=== PATIENT | male | born 1965 | race Caucasian/White ===

== ENCOUNTER → 2020-09-20 | Outpatient (CLI) | payer OTHER | LOC: M LABSMTC 09:38 | PROVIDERS: ATTEND Anesthesiology | DX: Z01.812 Encounter for preprocedural laboratory examination (principal); Z20.822 Contact with and (suspected) exposure to COVID-19 ==

== ENCOUNTER 2020-09-25 06:49 | Day surgery (SDC) | payer BC ==
[~2020-09-25] VITALS: Ht 172.7 cm; Wt 101.6 kg
[2020-09-25] MEDS ORDERED: NS 1,000 ML IV ONE (07:00)
[2020-09-25] MEDS ORDERED: LIDOCAINE 2% 100MG/5ML SDV (FOR ANES.) As Ordered ONE (07:05)
[2020-09-25] MEDS ORDERED: propofoL 200 MG/20 ML VIAL As Ordered ONE (07:05)
--- NOTE | 2020-09-25 08:12 | ROOR ---
Patient Name: Chris Hitchcock Procedure Date: 09/25/2020 7:27 AM Date of : 1965 Age: 55 Room: [facility] Gender: Male Note Status: Finalized Procedure: Colonoscopy Indications: Screening for colorectal malignant neoplasm Providers: Garth Mancera MD Referring MD: Court Almendarez MD Requesting Provider: Medicines: Monitored Anesthesia Care Complications: No immediate complications. Procedure: Pre-Anesthesia Assessment: - Prior to the procedure, a History and Physical was performed, and patient medications and allergies were reviewed. The patient is competent. The risks and benefits of the procedure and the sedation options and risks were discussed with the patient. All questions were answered and informed consent was obtained. Patient identification and proposed procedure were verified by the physician, the nurse and the anesthesiologist in the endoscopy suite. Mental Status Examination: alert and oriented. Airway Examination: normal oropharyngeal airway and neck mobility. Respiratory Examination: clear to auscultation. CV Examination: normal. Prophylactic Antibiotics: The patient does not require prophylactic antibiotics. Prior Anticoagulants: The patient has taken no previous anticoagulant or antiplatelet agents. ASA Grade Assessment: II - A patient with mild systemic disease. After reviewing the risks and benefits, the patient was deemed in satisfactory condition to undergo the procedure. The anesthesia plan was to use monitored anesthesia care (MAC). Immediately prior to administration of medications, the patient was re-assessed for adequacy to receive sedatives. The heart rate, respiratory rate, oxygen saturations, blood pressure, adequacy of pulmonary ventilation, and response to care were monitored throughout the procedure. The physical status of the patient was re-assessed after the procedure. The Colonoscope was introduced through the anus and advanced to the cecum, identified by appendiceal orifice and ileocecal valve. The colonoscopy was performed without difficulty. The patient tolerated the procedure well. The quality of the bowel preparation was good. Findings: Hemorrhoids were found on perianal exam. Four sessile polyps were found in the transverse colon, ascending colon and cecum. The polyps were 1 to 4 mm in size. These polyps were removed with a cold snare. Resection and retrieval were complete. Estimated blood loss was minimal. There was a small lipoma, 1 mm in diameter, in the ascending colon. The retroflexed view of the distal rectum and anal verge was normal and showed no anal or rectal abnormalities. Impression: - Hemorrhoids found on perianal exam. - Four 1 to 4 mm polyps in the transverse colon, in the ascending colon and in the cecum, removed with a cold snare. Resected and retrieved. - Small lipoma in the ascending colon. - The distal rectum and anal verge are normal on retroflexion view. Recommendation: - Discharge patient to home (ambulatory). - Telephone my office for pathology results in 1 week. - Repeat colonoscopy in 5 years for surveillance of multiple polyps. Procedure Code(s): --- Professional --- 89947, Colonoscopy, flexible; with removal of tumor(s), polyp(s), or other lesion(s) by snare technique Diagnosis Code(s): --- Professional --- Z12.11, Encounter for screening for malignant neoplasm of colon K64.9, Unspecified hemorrhoids K63.5, Polyp of colon D17.5, Benign lipomatous neoplasm of intra-abdominal organs CPT copyright 2019 [employer]. All rights reserved. The codes documented in this report are preliminary and upon braille coder review may be revised to meet current compliance requirements. Garth Mancera MD Garth Mancera MD 09/25/2020 8:12:14 AM Electronically signed by Garth Mancera MD Number of Addenda: 0 Note Initiated On: 09/25/2020 7:27 AM Estimated Blood Loss: Estimated blood loss was minimal.
[2020-09-25 08:32] VITALS: BP 104/62
== END 2020-09-25 08:35 | disposition home or self-care (01) ==
LOC: M OPP 06:49
PROVIDERS: ATTEND Surgery
DX: Z12.11 Encounter for screening for malignant neoplasm of colon (principal); K63.5 Polyp of colon; D17.5 Benign lipomatous neoplasm of intra-abdominal organs; K64.8 Other hemorrhoids; Z87.891 Personal history of nicotine dependence

== ENCOUNTER → 2020-10-17 | Outpatient (CLI) | payer BC ==
--- NOTE | 2020-10-17 16:35 | REP ---
INDICATION: RUQ ABD PAIN. COMPARISON: None. TECHNIQUE: Real-time sonographic evaluation of right upper quadrant performed. FINDINGS: Moderate sludge is seen in the gallbladder. There is a stone in the neck of the gallbladder 1.3 cm in diameter. Gallbladder wall is upper limits of normal in thickness at 3-4 mm.. There is no intrahepatic or extrahepatic biliary dilatation, common bile duct measures 5 mm in maximum diameter. The liver demonstrates homogeneous echotexture with no gross mass. Pancreas is not seen due to overlying bowel gas. The right kidney demonstrates no hydronephrosis, with a normal size of cm in length. No free fluid is seen. IMPRESSION: Moderate sludge in the gallbladder as well as a stone seen in the neck of the gallbladder 1.3 cm in diameter. No significant gallbladder wall thickening. No pericholecystic fluid or biliary dilatation. <Electronically signed by Chilango Whiting > 10/17/20 [id number]
== END ==
LOC: M RAD 09:19
PROVIDERS: ATTEND Family Medicine
DX: R10.11 Right upper quadrant pain (principal)

== ENCOUNTER → 2021-01-01 | Outpatient (CLI) | payer BC ==
--- NOTE | 2021-01-02 07:28 | ECGEPIP ---
[facility] Test Date: 2021-01-01 Pat Name: MARTIN RAMOS Department: Room: - Gender: Male Vocational Director: [place] : 1965 Requested By: JIM Thomas Order Number: [id number] Reading MD: Zafar Stephens Measurements Intervals [place] Rate: 60 P: 36 WI: 158 QRS: 1 QRSD: 90 T: 31 QT: 426 QTc: 426 Interpretive Statements Normal sinus rhythm somewhat prominent R waves V2 through V4 Consider RIGHT VENTRICULAR HYPERTROPHY versus prior posterior wall FL No prior tracing for comparison. Clincal correlation advised Electronically Signed on 01-02-2021 7:27:32 EDT by Zafar Stephens
== END ==
LOC: M LAB 09:23
PROVIDERS: ATTEND Surgery
DX: Z01.818 Encounter for other preprocedural examination (principal)

== ENCOUNTER → 2021-01-09 | Outpatient (CLI) | payer BC | LOC: M LABSMTC 10:10 | PROVIDERS: ATTEND Surgery | DX: Z01.812 Encounter for preprocedural laboratory examination (principal) ==

== ENCOUNTER 2021-01-13 09:38 | Day surgery (SDC) | payer BC ==
[~2021-01-13] VITALS: Ht 172.7 cm; Wt 97.1 kg
[~2021-01-13 09:38] MED LIST: AMPICILLIN SOD/SULBACTAM SOD 3 GM in D5W MINI-BAG PLUS 100 ML IV ONE; CelecoXIB 400 MG CAP PO ONE; INDOCYANINE GREEN 25MG VIAL (IC-GREEN) IV ONE; KETOROLAC 60MG 2ML VIAL As Ordered ONE; LIDOCAINE 2% 100MG/5ML SDV (FOR ANES.) As Ordered ONE; LR 1,000 ML IV ONE; MIDAZOLAM INJ 2MG/2ML VIAL (J2250 PER 1MG) As Ordered ONE; ONDANSETRON 4MG/2ML VIAL As Ordered ONE; ROCURONIUM BROMIDE 50 MG/5 ML VIAL As Ordered ONE; dexameTHASONE 4 MG/ML 1ML VIAL (J1100 PER 1MG) As Ordered ONE; fentaNYL 250 MCG/5 ML INJECTION (J3010) As Ordered ONE; propofoL 200 MG/20 ML VIAL As Ordered ONE
[2021-01-13] MEDS ORDERED: BUPIVACAINE HCL 0.25% 30ML VIAL As Ordered ONE (14:11)
[2021-01-13] MEDS ORDERED: LIDOCAINE 1% SDV 30ML VIAL As Ordered ONE (14:11)
[2021-01-13] MEDS ORDERED: GLYCOPYRROLATE INJ 0.2 MG/ML 2 ML VIAL As Ordered ONE (14:59)
[2021-01-13] MEDS ORDERED: ACETAMINOPHEN 1000MG 100ML IV BTL (OFIRMEV) (J0131 PER 10MG) As Ordered ONE (14:59)
[2021-01-13] MEDS ORDERED: ePHEDrine SULFATE 25 MG/5 ML(5MG/ML) SYRINGE As Ordered ONE (15:02)
[2021-01-13] MEDS ORDERED: SUGAMMADEX SODIUM 500 MG/5 ML VIAL (BRIDION) As Ordered ONE (15:05)
[2021-01-13] MEDS ORDERED: ROCURONIUM BROMIDE 50 MG/5 ML VIAL As Ordered ONE (15:35)
[2021-01-13] MEDS ORDERED: fentaNYL 100 MCG/2 ML INJECTION (J3010) IV PRN (18:00)
[2021-01-13] MEDS ORDERED: METOCLOPRAMIDE INJ 10MG/2ML VIAL (J2765 PER 1) IV PRN (18:00)
[2021-01-13] MEDS ORDERED: NORCO, ANEXSIA 5/325MG TABLET (HYDROcodone/ACETAMINOPHEN) PO PRN ×2 (18:00)
[2021-01-13] MEDS ORDERED: KETOROLAC 30 MG/ML 1ML VIAL IV PRN (18:00)
[2021-01-13] MEDS ORDERED: LR 1,000 ML IV SCH (18:00)
[2021-01-13] MEDS ORDERED: PERCOCET 5MG/325MG TAB PO PRN (18:00)
[2021-01-13] MEDS ORDERED: ONDANSETRON 4MG/2ML VIAL IV PRN ×2 (18:00)
[2021-01-13 18:35] VITALS: BP 135/88
--- NOTE | 2021-02-05 14:29 | ROOPDOC ---
[facility] Report Of Operation Report of Operation DATE OF PROCEDURE: 01/13/21 PREPROCEDURE DIAGNOSES: Cholelithiasis with biliary colic. POSTPROCEDURE DIAGNOSES: Cholelithiasis, chronic cholecystitis. PROCEDURE PERFORMED: Robotic assisted laparoscopic cholecystectomy with use of ICG for biliary tract identification. SURGEON: Jim Mancera MD LAY OUT INSPECTOR: Sabrina Melton NP provided assistance with placement of ports, instrument exchange and adjustment of arms, extraction of specimen and closure of port sites ANESTHESIA: General Endotracheal Anesthesia. ESTIMATED BLOOD LOSS: Approximately 20 mL. COMPLICATIONS: none. REMARKS: 55 M with biliary colic episodes secondary to gallstones FINDINGS: moderately distended, thick walled (chronic) gallbladder SPECIMENS REMOVED: gallbladder. DESCRIPTION OF PROCEDURE: Patient was given a dose, 2.5 mg of ICG was given IV in the preop area. He received a dose of Unasyn 3 g IV preoperatively for wound prophylaxis. He was brought to the operating room, laid supine on the table, compression boots placed for DVT prophylaxis. General endotracheal anesthesia started. His abdomen then prepped and draped in usual sterile fashion. Surgical timeout was performed prior to confirm right procedure, right patient identification and other necessary information prior to starting surgery. Entry into the abdomen done through an incision a below and to the right of the umbilicus. A Veress needle was inserted with a controlled fashion. CO2 insufflation started to pressure 15 mmHg. Under direct vision an 8 mm robotic trochar is placed through the same incision.. The area underneath the insertion site was inspected and no injury found. He was then placed on a 10 reverse Trendelenburg, tilted slightly towards the left side. Along the same transverse line about 10 cm apart 3 other robotic 8 mm trochars were placed under direct vision. A transversus abdominis plane block was then performed bilaterally using the lidocaine/marcaine mixture under laparoscopic guidance. 20 mLs of the mixture placed on each side. The da Rudy robot tower was then maneuvered in place and the trochars docked to the robot. After positioning the instruments inside of the abdomen, and scrubbed in to control of the camera and robotic instruments at the surgeon's console while my video production assistant remains on the field. Operative findings: Liver appears moderately enlarged, smooth appearing without any noticeable lesions on the surface. The gallbladder is moderately dilated, thick walled which was difficult to grab with the instruments. He has moderate amounts of fatty deposition to the structures of the hepatocystic triangle.. On firefly, the liver illuminates green but the gallbladder does not which shows an element of chronic cholecystitis I believe. With difficulty in manipulating the gallbladder, I chose a dome down approach. The posterior wall of the gallbladder was dissected free of the liver bed. I performed this extending the dissection laterally and medially up until I was able to have good control of the gallbladder fundus. The fundus of the gallbladder was grabbed and elevated superiorly to expose the hepatocystic triangle. The course of the cystic duct and location of the cbd confirmed visually and with firefly. I then proceeded with dissection of the hepatocystic triangle. The infundibulum of the gallbladder was retracted laterally. The cystic duct was exposed with dissection by the red angle hook cautery. The peritoneum overlying the area is opened up and dissected free both anteriorly and posteriorly to help with retraction of the gallbladder. The hepatocystic triangle was approached and dissected using hook cautery. On initial dissection the gallbladder does not light up firefly but towards the midpoint after encircling the neck of the gallbladder and coming down towards the cystic duct gallbladder at the neck off it was able to eliminate with firefly which helps direct the dissection. The cystic duct was identified coming off from the neck of the gallbladder. This was circumferentially dissected. The cystic artery was identified in its usual position medially behind a hepatocystic lymph node of [place]. This was similarly circumferentially dissected off surrounding adipose tissue. We continued posterior dissection proximally at the neck of gallbladder to dissect the posterior wall of the gallbladder off the cystic plate until a critical view of safety was achieved whereby only the previously identified duct and artery coursing through the neck the gallbladder(photodocumentation done.) At this point the the cystic artery was most accessible and this was clipped 2 times and divided in between the hemlock clips. After again checking her anatomy and verifying with firely the course of thecystic duct and common bile duct, this was also clipped and divided with 2 clips remaining at the cystic duct stump. The rest of the gallbladder was then dissected free of the gallbladder bed using hook cautery. The gallbladder was then placed in an Endo Catch bag and retrieved outside through the rightmost port site without further enlargement of the port site. I closed the defect with 20V LOC in a mattress fashion. The clips and liver bed was inspected for bleeding and bile leakage and none found. The abdomen was deflated, The trochars undocked, the robot removed from the field. Rest of the skin incisions closed with 4-0 Monocryl in subcuticular fashion. Dermabond placed to cover the incisions.. Patient was awakened, extubated and brought to recovery room stable. JIM MANCERA MD Feb 05, 2021 14:29
== END 2021-01-13 18:35 | disposition home or self-care (01) ==
LOC: M SDC 09:38
PROVIDERS: ATTEND Surgery
DX: K80.10 Calculus of gallbladder with chronic cholecystitis without obstruction (principal); Z87.891 Personal history of nicotine dependence
CPT/HCPCS: 47562; 88304; J0131; J1100; J1885; J2250; J2405; J3010; Q9968; S2900